=== PATIENT | female | born 1935 | race Caucasian/White ===

== ENCOUNTER 2017-08-15 15:40 | Inpatient (IN) ==
[2017-08-15] MEDS ORDERED: ALBUTEROL/IPRATROPIUM 3 ML NEB RESP TX PRN (15:43)
[2017-08-15] MEDS ORDERED: DOCUSATE SODIUM 100 MG CAPSULE PO PRN (15:43)
[2017-08-15] MEDS ORDERED: MEROPENEM 1,000 MG in SODIUM CHLORIDE 0.9% 100 ML IV SCH (16:00)
[2017-08-15] MEDS ORDERED: MAGNESIUM HYDROXIDE SUSP 30 ML UDCUP PO PRN (18:01)
[2017-08-15] MEDS: CLINDAMYCIN INJ 300 MG in PREMIX 1 EACH IV SCH (18:02)
[2017-08-15] MEDS: DEXTROSE 5% NACL 0.45% 1,000 ML IV SCH (18:02)
[2017-08-15] MEDS: methylPREDNISolone SOD SUC 40 MG/1 ML VIAL IV SCH (18:02)
[2017-08-15 18:26] LABS: Basophils # 0.1 10*3/uL (0.0-0.2); Basophils % 0.6 % (0.0-0.8); Eosinophils # 0.1 10*3/uL (0.0-0.87); Eosinophils % 1.1 % (0.00-10.9); Hematocrit 39.4 VOL% (35.7-47.0); Hemoglobin 13.6 GM/DL (12.0-16.0); Immature Granulocytes % 0.6 %; Immature Granulocytes Absolute 0.05 #; Lymphocytes # 3.2 10*3/uL (1.4-4.0); Lymphocytes % 35.9 % (21.3-54.2); Mean Corpuscular HGB Conc 34.5 GM/DL (32-36); Mean Corpuscular Hemoglobin 30 PG (27-34); Mean Corpuscular Volume 86.4 FL (87-102); Mean Platelet Volume 8.8 FL (9.6-12.0); Monocytes # 0.8 10*3/uL (0.11-0.8); Monocytes % 9.4 % (1.7-12.7); Neutrophils # 4.7 10*3/uL (1.4-7.4); Neutrophils % 52.4 % (38.7-73.9); Platelet Count 292 T/CUMM (130-400); Red Blood Count 4.56 MC/CUMM (3.8-5.5); White Blood Count 8.9 T/CUMM (4-12)
[2017-08-15 19:03] LABS: Albumin 3.9 G/DL (3.4-5.0); Bilirubin,Total 0.6 MG/DL (0.2-1.0); Calcium 9.3 MG/DL (8.5-10.1); Magnesium 2.1 MG/DL (1.8-2.4); Osmolality,Calculated 268.4 MOS/KG (273-304); Potassium 3.5 MMOL/L (3.5-5.1); Thyroid Stimulating Hormone 2.72 uIU/ml (0.358-3.74); Total Protein 7.3 G/DL (6.4-8.3)
[2017-08-15 19:31] LABS: Apearance,Urine Slightly Hazy (Clear); Bacteria,Urine Occasional /HPF (Few); Bilirubin,Urine Negative (Negative); Blood, Urine Negative (Negative); Glucose,Urine (UA) Negative (Negative); Ketones,Urine Negative (Negative); Mucus,Urine Occasional /LPF (Occasional); Nitrite,Urine Negative (Negative); Protein,Urine Negative; RBC,Urine <1 /HPF (0-4); Squamous Epithelial Cell,Urine Occasional /HPF (0-10); Transitional Epi Cells,Urine Occasional /HPF (<1); Urine Color Yellow (Yellow); Urine Specific Gravity 1.013 (1.001-1.035); Urine Urobilinogen < 2.0 EU/DL (0.2-1.0); WBC,Urine 10 /HPF (0-6)
[2017-08-15] MEDS: ALBUTEROL/IPRATROPIUM 3 ML NEB RESP TX SCH (19:52)
[2017-08-15] MEDS: ACETAMINOPHEN/diphenhydrAMINE 500-25 MG TABLET PO SCH (20:53)
[2017-08-15] MEDS: MEROPENEM 1,000 MG in SODIUM CHLORIDE 0.9% 50 ML IV SCH (20:53)
[2017-08-15] MEDS: MONTELUKAST 10 MG TABLET PO SCH (20:53)
[2017-08-15] MEDS: SERTRALINE 50 MG TABLET PO SCH (20:53)
[2017-08-16] MEDS: ALBUTEROL/IPRATROPIUM 3 ML NEB RESP TX SCH ×4 (01:04→19:34)
[2017-08-16] MEDS: CLINDAMYCIN INJ 300 MG in PREMIX 1 EACH IV SCH ×3 (03:15→17:16)
[2017-08-16 05:54] LABS: Calcium 8.5 MG/DL (8.5-10.1); Magnesium 1.9 MG/DL (1.8-2.4); Osmolality,Calculated 275.1 MOS/KG (273-304)
[2017-08-16] MEDS: methylPREDNISolone SOD SUC 40 MG/1 ML VIAL IV SCH ×2 (06:24→16:22)
[2017-08-16] MEDS: MEROPENEM 1,000 MG in SODIUM CHLORIDE 0.9% 50 ML IV SCH ×3 (06:25→20:22)
[2017-08-16] MEDS: DEXTROSE 5% NACL 0.45% 1,000 ML IV SCH ×3 (06:25→22:01)
[2017-08-16 06:32] LABS: Basophils % 0.1 % (0.0-0.8); Hematocrit 37.8 VOL% (35.7-47.0); Hemoglobin 12.9 GM/DL (12.0-16.0); Immature Granulocytes % 0.4 %; Immature Granulocytes Absolute 0.03 #; Lymphocytes # 1.1 10*3/uL (1.4-4.0); Lymphocytes % 12.4 % (21.3-54.2); Mean Corpuscular HGB Conc 34.1 GM/DL (32-36); Mean Corpuscular Hemoglobin 30 PG (27-34); Mean Corpuscular Volume 88.3 FL (87-102); Mean Platelet Volume 9.2 FL (9.6-12.0); Monocytes # 0.6 10*3/uL (0.11-0.8); Monocytes % 6.6 % (1.7-12.7); Neutrophils # 6.9 10*3/uL (1.4-7.4); Neutrophils % 80.5 % (38.7-73.9); Platelet Count 271 T/CUMM (130-400); Red Blood Count 4.28 MC/CUMM (3.8-5.5); Red Cell Distribution Width 13.1 % (9.3-17.3); White Blood Count 8.5 T/CUMM (4-12)
[2017-08-16] MEDS: MONTELUKAST 10 MG TABLET PO SCH ×2 (08:02→20:23)
[2017-08-16] MEDS: TRIAMTERENE/HCTZ 37.5-25 MG CAPSULE PO SCH (08:02)
[2017-08-16] MEDS: PRAVASTATIN 40 MG TABLET PO SCH (08:02)
[2017-08-16] MEDS: PANTOPRAZOLE 40 MG TABLET PO SCH (08:02)
[2017-08-16] MEDS: FERROUS SULFATE 325 MG TABLET PO SCH (08:03)
[2017-08-16] MEDS ORDERED: PNEUMOCOCCAL VACCINE (13 VALENT) 0.5 ML SYRINGE IM ONE (09:00)
[2017-08-16] MEDS: ACETAMINOPHEN 325 MG TABLET PO PRN ×2 (09:56→14:38)
[2017-08-16] MEDS ORDERED: AMINOPHYLLINE 250 MG in SODIUM CHLORIDE 0.9% 100 ML IV ONE (11:00)
[2017-08-16] MEDS ORDERED: AMINOPHYLLINE 250 MG in SODIUM CHLORIDE 0.9% 240 ML IV SCH (15:00)
[2017-08-16] MEDS: AMINOPHYLLINE 250 MG in SODIUM CHLORIDE 0.9% 240 ML IV SCH (17:38)
[2017-08-16] MEDS: SERTRALINE 50 MG TABLET PO SCH (20:23)
[2017-08-16] MEDS: ACETAMINOPHEN/diphenhydrAMINE 500-25 MG TABLET PO SCH (20:24)
[2017-08-16] MEDS: ZALEPLON 5 MG CAPSULE PO PRN (22:00)
[2017-08-17] MEDS: ALBUTEROL/IPRATROPIUM 3 ML NEB RESP TX SCH ×4 (00:20→19:25)
[2017-08-17] MEDS: CLINDAMYCIN INJ 300 MG in PREMIX 1 EACH IV SCH ×3 (01:55→17:17)
[2017-08-17] MEDS: methylPREDNISolone SOD SUC 40 MG/1 ML VIAL IV SCH ×2 (05:17→17:17)
[2017-08-17] MEDS: MEROPENEM 1,000 MG in SODIUM CHLORIDE 0.9% 50 ML IV SCH ×3 (05:18→20:40)
[2017-08-17] MEDS: TRIAMTERENE/HCTZ 37.5-25 MG CAPSULE PO SCH (08:04)
[2017-08-17] MEDS: FERROUS SULFATE 325 MG TABLET PO SCH (08:04)
[2017-08-17] MEDS: MONTELUKAST 10 MG TABLET PO SCH ×2 (08:04→20:44)
[2017-08-17] MEDS: PANTOPRAZOLE 40 MG TABLET PO SCH (08:04)
[2017-08-17] MEDS: PRAVASTATIN 40 MG TABLET PO SCH (08:04)
[2017-08-17] MEDS: DEXTROSE 5% NACL 0.45% 1,000 ML IV SCH (08:05)
[2017-08-17] MEDS: ACETAMINOPHEN 325 MG TABLET PO PRN ×2 (09:32→18:00)
[2017-08-17] MEDS ORDERED: guaiFENesin 200 MG/10 ML UDCUP PO PRN (10:44)
[2017-08-17] MEDS: AMINOPHYLLINE 250 MG in SODIUM CHLORIDE 0.9% 240 ML IV SCH (17:17)
[2017-08-17] MEDS: ALUMINUM/MAGNES/SIMETH MAX STR 30 ML UDCUP PO PRN (18:00)
[2017-08-17] MEDS: DICLOFENAC 1.3% PATCH 5/PACK TRANSDERM SCH (20:39)
[2017-08-17] MEDS: ACETAMINOPHEN/diphenhydrAMINE 500-25 MG TABLET PO SCH (20:40)
[2017-08-17] MEDS: SERTRALINE 50 MG TABLET PO SCH (20:41)
[2017-08-17] MEDS: ZALEPLON 5 MG CAPSULE PO PRN (20:45)
[2017-08-18] MEDS: ALBUTEROL/IPRATROPIUM 3 ML NEB RESP TX SCH ×4 (00:17→19:26)
[2017-08-18] MEDS: CLINDAMYCIN INJ 300 MG in PREMIX 1 EACH IV SCH ×3 (02:07→17:02)
[2017-08-18] MEDS: DEXTROSE 5% NACL 0.45% 1,000 ML IV SCH ×3 (02:08→20:41)
[2017-08-18] MEDS: MEROPENEM 1,000 MG in SODIUM CHLORIDE 0.9% 50 ML IV SCH ×3 (05:02→20:32)
[2017-08-18] MEDS: methylPREDNISolone SOD SUC 40 MG/1 ML VIAL IV SCH ×2 (05:03→16:39)
[2017-08-18] MEDS: PANTOPRAZOLE 40 MG TABLET PO SCH (08:15)
[2017-08-18] MEDS: FERROUS SULFATE 325 MG TABLET PO SCH (08:15)
[2017-08-18] MEDS: PRAVASTATIN 40 MG TABLET PO SCH (08:15)
[2017-08-18] MEDS: MONTELUKAST 10 MG TABLET PO SCH ×2 (08:15→20:32)
[2017-08-18] MEDS: TRIAMTERENE/HCTZ 37.5-25 MG CAPSULE PO SCH (08:15)
[2017-08-18] MEDS: DICLOFENAC 1.3% PATCH 5/PACK TRANSDERM SCH ×2 (08:17→20:31)
[2017-08-18] MEDS: ACETAMINOPHEN 325 MG TABLET PO PRN (10:55)
[2017-08-18] MEDS: AMINOPHYLLINE 250 MG in SODIUM CHLORIDE 0.9% 240 ML IV SCH ×4 (14:46→22:45)
[2017-08-18] MEDS: BENZONATATE 100 MG CAPSULE PO SCH ×2 (15:02→20:32)
[2017-08-18] MEDS: DORNASE ALFA 2.5 MG/2.5 ML VIAL RESP TX SCH (19:33)
[2017-08-18] MEDS: ACETAMINOPHEN/diphenhydrAMINE 500-25 MG TABLET PO SCH (20:32)
[2017-08-18] MEDS: ZALEPLON 5 MG CAPSULE PO PRN (20:32)
[2017-08-18] MEDS: SERTRALINE 50 MG TABLET PO SCH (20:32)
[2017-08-18] MEDS: ALUMINUM/MAGNES/SIMETH MAX STR 30 ML UDCUP PO PRN (23:47)
[2017-08-19] MEDS: ALBUTEROL/IPRATROPIUM 3 ML NEB RESP TX SCH ×4 (00:26→19:29)
[2017-08-19] MEDS: CLINDAMYCIN INJ 300 MG in PREMIX 1 EACH IV SCH ×3 (02:02→17:15)
[2017-08-19] MEDS: MEROPENEM 1,000 MG in SODIUM CHLORIDE 0.9% 50 ML IV SCH ×3 (04:22→21:02)
[2017-08-19] MEDS: methylPREDNISolone SOD SUC 40 MG/1 ML VIAL IV SCH (04:22)
[2017-08-19] MEDS: DORNASE ALFA 2.5 MG/2.5 ML VIAL RESP TX SCH ×2 (07:30→19:42)
[2017-08-19] MEDS: PANTOPRAZOLE 40 MG TABLET PO SCH (08:11)
[2017-08-19] MEDS: BENZONATATE 100 MG CAPSULE PO SCH ×3 (08:11→21:02)
[2017-08-19] MEDS: MONTELUKAST 10 MG TABLET PO SCH ×2 (08:11→21:01)
[2017-08-19] MEDS: TRIAMTERENE/HCTZ 37.5-25 MG CAPSULE PO SCH (08:11)
[2017-08-19] MEDS: FERROUS SULFATE 325 MG TABLET PO SCH (08:11)
[2017-08-19] MEDS: PRAVASTATIN 40 MG TABLET PO SCH (08:11)
[2017-08-19] MEDS: DICLOFENAC 1.3% PATCH 5/PACK TRANSDERM SCH ×2 (08:11→22:35)
[2017-08-19] MEDS: ACETAMINOPHEN 325 MG TABLET PO PRN (08:11)
[2017-08-19] MEDS: ALUMINUM/MAGNES/SIMETH MAX STR 30 ML UDCUP PO PRN (10:33)
[2017-08-19] MEDS: THEOPHYLLINE ER (24 HR) 200 MG CAPSULE PO SCH ×2 (11:43→11:48)
[2017-08-19] MEDS: SUCRALFATE 1 GM TABLET PO SCH ×4 (11:43→21:02)
[2017-08-19] MEDS ORDERED: NYSTATIN 500,000 UNIT/5 ML UDCUP SWISH/SWAL SCH (13:00)
[2017-08-19 14:12] LABS: Apearance,Urine CLEAR (Clear); Bilirubin,Urine Negative (Negative); Blood, Urine Small mg/dL (Negative); Glucose,Urine (UA) Negative (Negative); Ketones,Urine Negative (Negative); Nitrite,Urine Negative (Negative); Protein,Urine Negative; RBC,Urine <1 /HPF (0-4); Squamous Epithelial Cell,Urine Occasional /HPF (0-10); Urine Color Straw (Yellow); Urine Specific Gravity 1.009 (1.001-1.035); Urine Urobilinogen < 2.0 EU/DL (0.2-1.0); WBC,Urine <1 /HPF (0-6)
[2017-08-19] MEDS: NYSTATIN 500,000 UNIT/5 ML UDCUP SWISH/SWAL SCH ×3 (14:14→21:00)
[2017-08-19] MEDS: ACETAMINOPHEN/diphenhydrAMINE 500-25 MG TABLET PO SCH (21:01)
[2017-08-19] MEDS: SERTRALINE 50 MG TABLET PO SCH (21:02)
[2017-08-19] MEDS: ZALEPLON 5 MG CAPSULE PO PRN (21:21)
[2017-08-20] MEDS: ALBUTEROL/IPRATROPIUM 3 ML NEB RESP TX SCH ×4 (00:55→19:21)
[2017-08-20] MEDS: CLINDAMYCIN INJ 300 MG in PREMIX 1 EACH IV SCH ×3 (04:32→17:03)
[2017-08-20] MEDS: MEROPENEM 1,000 MG in SODIUM CHLORIDE 0.9% 50 ML IV SCH ×3 (05:34→21:16)
[2017-08-20] MEDS: DORNASE ALFA 2.5 MG/2.5 ML VIAL RESP TX SCH ×2 (07:30→19:21)
[2017-08-20] MEDS: FERROUS SULFATE 325 MG TABLET PO SCH (08:13)
[2017-08-20] MEDS: BENZONATATE 100 MG CAPSULE PO SCH ×3 (08:14→21:11)
[2017-08-20] MEDS: TRIAMTERENE/HCTZ 37.5-25 MG CAPSULE PO SCH (08:14)
[2017-08-20] MEDS: MONTELUKAST 10 MG TABLET PO SCH ×2 (08:14→21:11)
[2017-08-20] MEDS: PRAVASTATIN 40 MG TABLET PO SCH (08:14)
[2017-08-20] MEDS: THEOPHYLLINE ER (24 HR) 200 MG CAPSULE PO SCH (08:14)
[2017-08-20] MEDS: SUCRALFATE 1 GM TABLET PO SCH ×4 (08:14→21:11)
[2017-08-20] MEDS: NYSTATIN 500,000 UNIT/5 ML UDCUP SWISH/SWAL SCH ×4 (08:14→21:09)
[2017-08-20] MEDS: PANTOPRAZOLE 40 MG TABLET PO SCH (08:14)
[2017-08-20] MEDS: DICLOFENAC 1.3% PATCH 5/PACK TRANSDERM SCH ×2 (08:16→21:13)
[2017-08-20] MEDS: methylPREDNISolone SOD SUC 40 MG/1 ML VIAL IV SCH (08:20)
[2017-08-20] MEDS: ACETAMINOPHEN/diphenhydrAMINE 500-25 MG TABLET PO SCH (21:11)
[2017-08-20] MEDS: ZALEPLON 5 MG CAPSULE PO PRN (21:12)
[2017-08-20] MEDS: SERTRALINE 50 MG TABLET PO SCH (21:12)
[2017-08-21] MEDS: ALBUTEROL/IPRATROPIUM 3 ML NEB RESP TX SCH ×2 (00:31→07:54)
[2017-08-21] MEDS: CLINDAMYCIN INJ 300 MG in PREMIX 1 EACH IV SCH ×2 (01:32→09:22)
[2017-08-21] MEDS: MEROPENEM 1,000 MG in SODIUM CHLORIDE 0.9% 50 ML IV SCH (04:16)
[2017-08-21] MEDS: DORNASE ALFA 2.5 MG/2.5 ML VIAL RESP TX SCH (07:55)
[2017-08-21] MEDS: DICLOFENAC 1.3% PATCH 5/PACK TRANSDERM SCH (09:22)
[2017-08-21] MEDS: PRAVASTATIN 40 MG TABLET PO SCH (09:23)
[2017-08-21] MEDS: methylPREDNISolone SOD SUC 40 MG/1 ML VIAL IV SCH (09:23)
[2017-08-21] MEDS: FERROUS SULFATE 325 MG TABLET PO SCH (09:23)
[2017-08-21] MEDS: NYSTATIN 500,000 UNIT/5 ML UDCUP SWISH/SWAL SCH (09:24)
[2017-08-21] MEDS: TRIAMTERENE/HCTZ 37.5-25 MG CAPSULE PO SCH (09:24)
[2017-08-21] MEDS: PANTOPRAZOLE 40 MG TABLET PO SCH (09:24)
[2017-08-21] MEDS: MONTELUKAST 10 MG TABLET PO SCH (09:24)
[2017-08-21] MEDS: THEOPHYLLINE ER (24 HR) 200 MG CAPSULE PO SCH (09:24)
[2017-08-21] MEDS: BENZONATATE 100 MG CAPSULE PO SCH (09:25)
[2017-08-21] MEDS: SUCRALFATE 1 GM TABLET PO SCH ×2 (09:26→11:46)
[2017-08-21] MEDS: ACETAMINOPHEN 325 MG TABLET PO PRN (09:27)
[2017-08-21 11:12] VITALS: BP 148/72
== END 2017-08-21 13:29 | disposition home or self-care (01) | DRG 202 ==
LOC: N.5E 16:41
PROVIDERS: ADMIT Internal Medicine Pulmonary Disease; ATTEND Internal Medicine Pulmonary Disease

== ENCOUNTER 2022-12-09 14:18 | Inpatient (IN) ==
[2022-12-09 19:23] LABS: Basophils # 0.1 10*3/uL (0.0-0.2); Basophils % 0.6 % (0.0-0.8); Eosinophils # 0.7 10*3/uL (0.0-0.87); Eosinophils % 7.6 % (0.00-10.9); Hematocrit 33.9 VOL% (35.7-47.0); Hemoglobin 10.9 GM/DL (12.0-16.0); Immature Granulocytes % 0.7 %; Immature Granulocytes Absolute 0.06 #; Lymphocytes # 2.1 10*3/uL (1.4-4.0); Lymphocytes % 23.8 % (21.3-54.2); Mean Corpuscular HGB Conc 32.2 GM/DL (32-36); Mean Corpuscular Volume 86.3 FL (87-102); Mean Platelet Volume 8.1 FL (9.6-12.0); Monocytes % 10.6 % (1.7-12.7); Neutrophils % 56.7 % (38.7-73.9); Platelet Count 364 T/CUMM (130-400); Red Blood Count 3.93 MC/CUMM (3.8-5.5); Red Cell Distribution Width 14.2 % (9.3-17.3)
[2022-12-09 19:45] LABS: Albumin 2.9 G/DL (3.4-5.0); Bilirubin,Total 0.4 MG/DL (0.20-1.00); Calcium 9.3 MG/DL (8.5-10.1); Osmolality,Calculated 281.5 MOS/KG (273-304); Potassium 3.2 MMOL/L (3.5-5.1)
[2022-12-09] MEDS ORDERED: ACETAMINOPHEN 325 MG TABLET PO PRN (20:57)
[2022-12-09] MEDS ORDERED: PROMETHAZINE 25 MG/1 ML VIAL IV PRN (20:57)
[2022-12-09] MEDS ORDERED: ONDANSETRON 4 MG/2 ML VIAL IV PRN (20:57)
[2022-12-09] MEDS ORDERED: hydrALAZINE 20 MG/1 ML VIAL IV PRN (20:57)
[2022-12-09] MEDS ORDERED: POTASSIUM CHLORIDE RIDER 10 MEQ/100 ML PREMIX IV PRN (21:10)
[2022-12-09] MEDS ORDERED: PROMETHAZINE INJ 25 MG in SODIUM CHLORIDE 0.9% 50 ML IV PRN (21:28)
[2022-12-09] MEDS ORDERED: PROMETHAZINE INJ 12.5 MG in SODIUM CHLORIDE 0.9% 50 ML IV PRN (21:30)
[2022-12-09] MEDS: SODIUM CHLORIDE 0.9% 1,000 ML IV SCH (22:20)
[2022-12-09] MEDS: PANTOPRAZOLE 40 MG VIAL IV SCH (22:50)
[2022-12-10 04:22] LABS: Basophils # 0.1 10*3/uL (0.0-0.2); Basophils % 0.8 % (0.0-0.8); Eosinophils # 0.7 10*3/uL (0.0-0.87); Eosinophils % 9.5 % (0.00-10.9); Hematocrit 32.1 VOL% (35.7-47.0); Hemoglobin 10.5 GM/DL (12.0-16.0); Immature Granulocytes Absolute 0.07 #; Lymphocytes % 28.1 % (21.3-54.2); Mean Corpuscular HGB Conc 32.7 GM/DL (32-36); Mean Corpuscular Volume 87.2 FL (87-102); Mean Platelet Volume 9.4 FL (9.6-12.0); Monocytes # 0.9 10*3/uL (0.11-0.8); Monocytes % 12.7 % (1.7-12.7); Neutrophils % 47.9 % (38.7-73.9); Platelet Count 311 T/CUMM (130-400); Red Blood Count 3.68 MC/CUMM (3.8-5.5); Red Cell Distribution Width 14.6 % (9.3-17.3); White Blood Count 7.19 T/CUMM (4-12)
[2022-12-10 04:33] LABS: PT Patient Result 11.4 SECS (10.1-12.1); Partial Thromboplastin Time 21.5 SECS (23.7-32.9)
[2022-12-10 04:40] LABS: Folate > 24.00 NG/ML (5.38-24.0); Vitamin B12 > 2000 PG/ML (211-911)
[2022-12-10 04:42] LABS: Calcium 9.3 MG/DL (8.5-10.1); Potassium 3.2 MMOL/L (3.5-5.1); Thyroid Stimulating Hormone 3.15 uIU/ml (0.358-3.74)
[2022-12-10 04:54] LABS: % Iron Saturation 27.8 % (18-50)
[2022-12-10] MEDS ORDERED: traMADol 50 MG TABLET PO PRN (07:23)
[2022-12-10] MEDS ORDERED: MAGNESIUM SULF RIDER 2 GM/50 ML PREMIX IV PRN (07:24)
[2022-12-10] MEDS ORDERED: MAGNESIUM SULF RIDER 4 GM/100 ML PREMIX IV PRN (07:24)
[2022-12-10] MEDS ORDERED: POTASSIUM CHLORIDE 20 MEQ TABLET PO ONE ×2 (07:25→12:00)
[2022-12-10] MEDS: SODIUM CHLORIDE 0.9% 1,000 ML IV SCH ×2 (07:43→16:04)
[2022-12-10] MEDS: PANTOPRAZOLE 40 MG VIAL IV SCH ×2 (09:47→21:23)
[2022-12-10] MEDS: SERTRALINE 50 MG TABLET PO SCH (09:48)
[2022-12-10] MEDS: ASPIRIN 325 MG TABLET PO SCH (09:48)
[2022-12-10] MEDS: FERROUS SULFATE 325 MG TABLET PO SCH (09:48)
[2022-12-10] MEDS: ROSUVASTATIN 10 MG TABLET PO SCH (09:51)
[2022-12-10] MEDS: CHOLECALCIFEROL 1,000 UNIT TABLET PO SCH (09:51)
[2022-12-10] MEDS ORDERED: MAGNESIUM SULF RIDER 4 GM/100 ML PREMIX IV ONE (10:31)
[2022-12-10] MEDS: SUCRALFATE 1 GM TABLET PO SCH ×3 (10:41→21:23)
[2022-12-11] MEDS: SODIUM CHLORIDE 0.9% 1,000 ML IV SCH ×3 (04:05→22:06)
[2022-12-11 06:06] LABS: Basophils # 0.1 10*3/uL (0.0-0.2); Basophils % 0.9 % (0.0-0.8); Eosinophils # 0.7 10*3/uL (0.0-0.87); Eosinophils % 10.5 % (0.00-10.9); Hematocrit 33.9 VOL% (35.7-47.0); Hemoglobin 10.8 GM/DL (12.0-16.0); Immature Granulocytes % 0.6 %; Immature Granulocytes Absolute 0.04 #; Lymphocytes # 1.7 10*3/uL (1.4-4.0); Lymphocytes % 27.1 % (21.3-54.2); Mean Corpuscular HGB Conc 31.9 GM/DL (32-36); Mean Corpuscular Volume 87.6 FL (87-102); Mean Platelet Volume 8.5 FL (9.6-12.0); Monocytes # 0.8 10*3/uL (0.11-0.8); Monocytes % 12.1 % (1.7-12.7); Neutrophils % 48.8 % (38.7-73.9); Platelet Count 359 T/CUMM (130-400); Red Blood Count 3.87 MC/CUMM (3.8-5.5); Red Cell Distribution Width 14.6 % (9.3-17.3); White Blood Count 6.39 T/CUMM (4-12)
[2022-12-11 06:28] LABS: Calcium 8.4 MG/DL (8.5-10.1); Potassium 3.8 MMOL/L (3.5-5.1)
[2022-12-11] MEDS: LACTATED RINGERS 1,000 ML IV SCH (07:21)
[2022-12-11] MEDS ORDERED: ONDANSETRON 4 MG/2 ML VIAL ONE (07:32)
[2022-12-11] MEDS ORDERED: LIDOCAINE 2% 5 ML VIAL ONE (08:50)
[2022-12-11] MEDS ORDERED: propofoL 200 MG/20 ML VIAL IV ONE (08:50)
[2022-12-11] MEDS ORDERED: PHENYLEPHRINE 1 MG/10 ML SYRINGE IV ONE ×2 (08:53)
[2022-12-11] MEDS: SUCRALFATE 1 GM TABLET PO SCH ×4 (08:58→20:18)
[2022-12-11] MEDS: FERROUS SULFATE 325 MG TABLET PO SCH (11:15)
[2022-12-11] MEDS: ROSUVASTATIN 10 MG TABLET PO SCH (11:15)
[2022-12-11] MEDS: SERTRALINE 50 MG TABLET PO SCH (11:15)
[2022-12-11] MEDS: PANTOPRAZOLE 40 MG VIAL IV SCH ×2 (11:15→20:18)
[2022-12-11] MEDS: TRIAMTERENE/HCTZ 37.5-25 MG CAPSULE PO SCH (11:15)
[2022-12-11] MEDS: CHOLECALCIFEROL 1,000 UNIT TABLET PO SCH (11:15)
[2022-12-12] MEDS: PANTOPRAZOLE 40 MG VIAL IV SCH ×2 (10:09→21:32)
[2022-12-12] MEDS: SUCRALFATE 1 GM TABLET PO SCH ×4 (10:10→21:28)
[2022-12-12] MEDS: CHOLECALCIFEROL 1,000 UNIT TABLET PO SCH (10:10)
[2022-12-12] MEDS: ASPIRIN 325 MG TABLET PO SCH (10:10)
[2022-12-12] MEDS: ROSUVASTATIN 10 MG TABLET PO SCH (10:10)
[2022-12-12] MEDS: SODIUM CHLORIDE 0.9% 1,000 ML IV SCH ×2 (10:10→21:28)
[2022-12-12] MEDS: SERTRALINE 50 MG TABLET PO SCH (10:10)
[2022-12-12] MEDS: FERROUS SULFATE 325 MG TABLET PO SCH (10:10)
[2022-12-12] MEDS: TRIAMTERENE/HCTZ 37.5-25 MG CAPSULE PO SCH (10:10)
[2022-12-12] MEDS: LACTATED RINGERS 1,000 ML IV SCH (19:05)
[2022-12-12] MEDS: CYPROHEPTADINE 4 MG TABLET PO SCH (21:28)
[2022-12-13 06:10] LABS: Calcium 8.2 MG/DL (8.5-10.1); Osmolality,Calculated 280.1 MOS/KG (273-304); Potassium 3.2 MMOL/L (3.5-5.1)
[2022-12-13 06:23] LABS: Basophils # 0.1 10*3/uL (0.0-0.2); Basophils % 1.2 % (0.0-0.8); Eosinophils # 0.6 10*3/uL (0.0-0.87); Eosinophils % 8.8 % (0.00-10.9); Hematocrit 34.7 VOL% (35.7-47.0); Hemoglobin 11.1 GM/DL (12.0-16.0); Immature Granulocytes % 0.5 %; Immature Granulocytes Absolute 0.03 #; Lymphocytes % 31.5 % (21.3-54.2); Mean Corpuscular Volume 88.7 FL (87-102); Mean Platelet Volume 8.8 FL (9.6-12.0); Monocytes # 0.7 10*3/uL (0.11-0.8); Monocytes % 10.8 % (1.7-12.7); Neutrophils % 47.2 % (38.7-73.9); Platelet Count 338 T/CUMM (130-400); Red Blood Count 3.91 MC/CUMM (3.8-5.5); Red Cell Distribution Width 14.4 % (9.3-17.3); White Blood Count 6.48 T/CUMM (4-12)
[2022-12-13] MEDS: SODIUM CHLORIDE 0.9% 1,000 ML IV SCH (07:00)
[2022-12-13] MEDS: CYPROHEPTADINE 4 MG TABLET PO SCH ×2 (08:37→16:55)
[2022-12-13] MEDS: SUCRALFATE 1 GM/10 ML UDCUP PO SCH ×3 (08:37→16:55)
[2022-12-13] MEDS: CHOLECALCIFEROL 1,000 UNIT TABLET PO SCH (08:37)
[2022-12-13] MEDS: SERTRALINE 50 MG TABLET PO SCH (08:38)
[2022-12-13] MEDS: TRIAMTERENE/HCTZ 37.5-25 MG CAPSULE PO SCH (08:38)
[2022-12-13] MEDS: FERROUS SULFATE 325 MG TABLET PO SCH (08:38)
[2022-12-13] MEDS: PANTOPRAZOLE 40 MG VIAL IV SCH (08:39)
[2022-12-13] MEDS: ROSUVASTATIN 10 MG TABLET PO SCH (11:45)
[2022-12-13 16:19] VITALS: BP 125/62
== END 2022-12-13 16:58 | disposition home or self-care (01) | DRG 392 ==
LOC: N.EDINP 14:18 → N.ED 14:18 → SUATTDRO 12-10 00:17 → N.2E 12-10 06:38
PROVIDERS: ADMIT Family Medicine; ATTEND Hospitalist